=== PATIENT | female | born 1990 | race American Indian/Alaskan Native ===

== ENCOUNTER 2016-11-06 15:11 | Emergency (ER) | payer SELFPAY ==
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
[2016-11-06 19:06] VITALS: BP 140/84
== END 2016-11-06 19:21 | disposition home or self-care (01) ==
LOC: ED 15:11
DX: G44.319 Acute post-traumatic headache, not intractable (principal); R03.0 Elevated blood-pressure reading, without diagnosis of hypertension; V89.2XXA Person injured in unspecified motor-vehicle accident, traffic, initial encounter; Y93.89 Activity, other specified; Y99.9 Unspecified external cause status; Y92.410 Unspecified street and highway as the place of occurrence of the external cause
CPT/HCPCS: 70450